=== PATIENT | male | born 1990 | race African-American/Black ===

== ENCOUNTER 2021-03-08 13:23 | Emergency (ER) | payer MEDICAID ==
[~2021-03-08] VITALS: Ht 167.6 cm; Wt 79.0 kg
[2021-03-08 13:24] VITALS: BP 126/89
[2021-03-08] MEDS ORDERED: HYDROCODONE/ACETAMINOPHEN 5/325MG TABLET PO ONE (13:45)
[2021-03-08] MEDS ORDERED: DIAZEPAM 5 MG TABLET PO ONE (13:45)
[2021-03-08] MEDS ORDERED: METH-773 MT (14:10)
[2021-03-08] MEDS ORDERED: IBUP-2030 MT (14:10)
[2021-03-08] MEDS ORDERED: TRAM50TA MT (14:10)
== END 2021-03-08 14:29 | disposition home or self-care (01) ==
LOC: ER 13:23
DX: S39.92XA Unspecified injury of lower back, initial encounter (principal); M54.5 Low back pain; Z79.899 Other long term (current) drug therapy; V49.88XA Car occupant (driver) (passenger) injured in other specified transport accidents, initial encounter; Y93.89 Activity, other specified; Y92.89 Other specified places as the place of occurrence of the external cause; Y99.8 Other external cause status
CPT/HCPCS: 72070; 72100; 99284